=== PATIENT | male | born 1950 | race Hispanic/Latino ===

== ENCOUNTER 2020-01-15 08:15 | Day surgery (SDC) | payer OTHER ==
[2020-01-13 15:07] LABS: BASOPHILS % (AUTO) 0.6 % (0.0-5.0); EOSINOPHILS % (AUTO) 2.8 % (0.0-8.0); HEMATOCRIT 36.7 % (42-54); LYMPHOCYTES % (AUTO) 21.6 % (21.0-51.0); MEAN CORPUSCULAR HEMOGLOBIN 29.8 pg (27.0-33.0); MEAN CORPUSCULAR VOLUME 90.4 fL (79-99); MONOCYTES % (AUTO) 4.8 % (3.0-13.0); PLATELET COUNT (AUTO) 240 K/uL (130-400); RED BLOOD CELL COUNT(AUTO) 4.06 MIL/uL (4.50-6.20); WHITE BLOOD COUNT (AUTO) 5.4 K/uL (4.8-10.8)
[2020-01-13 15:15] LABS: CREATININE 1.8 mg/dL (0.5-1.5); POTASSIUM 4.5 mmol/L (3.5-5.1)
[2020-01-14 10:46] VITALS: BP 142/80
--- NOTE | 2020-01-14 15:12 | NUR ---
Abnormal labs Faxed over CBC and CMP; awaiting for response.
[~2020-01-15] VITALS: Ht 171.4 cm; Wt 99.6 kg
[2020-01-15] VITALS (17 sets, daily range): BP systolic 122–155; BP diastolic 70–89
--- NOTE | 2020-01-15 08:30 | NUR ---
preop pt arrived in no distress. pt oriented to call light and room. will continue to monitor pt.
[2020-01-15] MEDS ORDERED: SODIUM CHLORIDE 0.9% 1000ML 1,000 ML IV ONE (08:32)
[2020-01-15] MEDS ORDERED: ATOR40TA69 PO (08:58)
[2020-01-15] MEDS ORDERED: LEVO25TA54 PO (08:58)
[2020-01-15] MEDS ORDERED: DULA1.5P SQ (08:58)
[2020-01-15] MEDS ORDERED: INSU100V37 SQ (08:58)
[2020-01-15] MEDS ORDERED: ASPI-1197 PO (08:58)
[2020-01-15] MEDS ORDERED: CHOL100046 PO (08:58)
[2020-01-15] MEDS ORDERED: TRAM50TA4 PO (08:58)
[2020-01-15] MEDS ORDERED: INSU100C6 SQ ×3 (08:58)
[2020-01-15] MEDS ORDERED: ALPH600C3 PO (08:58)
[2020-01-15] MEDS ORDERED: LISI-613 PO (08:58)
[2020-01-15] MEDS ORDERED: HYDR12.54 PO (08:58)
[2020-01-15] MEDS ORDERED: PANT40TA54 PO (08:58)
[2020-01-15] MEDS ORDERED: METO-391 PO (08:58)
[2020-01-15] MEDS ORDERED: VIT1TABL83 PO (08:58)
[2020-01-15] MEDS ORDERED: ROPI2TAB7 PO (08:58)
[2020-01-15] MEDS ORDERED: CLINDAMYCIN 600 MG/D5% WATER 50 ML IV ONE (09:01)
--- NOTE | 2020-01-15 09:10 | NUR ---
bs bs 65 . pt asymptomatic, dextrose 50 1/2 amp given ivp (25 ml), no adverse reaction noted. will continue to monitor
[2020-01-15] MEDS ORDERED: LIDOCAINE PF 2% 5ML ABBOJECT ONE (11:26)
[2020-01-15] MEDS ORDERED: FENTANYL CITRATE PF 50 MCG/1 ML 2ML VIAL ONE (11:27)
[2020-01-15] MEDS ORDERED: ONDANSETRON HCL 4 MG/2 ML VIAL ONE (11:27)
[2020-01-15] MEDS ORDERED: MIDAZOLAM HCL 1 MG/ML 2ML VIAL ONE (11:27)
[2020-01-15] MEDS ORDERED: ROCURONIUM 10MG/1ML SYR 10 MG/ML ML ONE (11:27)
[2020-01-15] MEDS ORDERED: DEXAMETHASONE SOD PHOSPHATE 10MG/ML 1ML VIAL ONE (11:27)
[2020-01-15] MEDS ORDERED: PROPOFOL 10 MG/ML 20ML VIAL IV ONE (11:27)
[2020-01-15] MEDS ORDERED: ROPIVACAINE 0.5% 5MG/ML 30ML IJ ONE (11:30)
[2020-01-15] MEDS ORDERED: EPHEDRINE SULFATE 50 MG/ML AMPULE ONE (11:47)
[2020-01-15] MEDS ORDERED: CLINDAMYCIN PHOSPHATE 150 MG/ML 6ML VIAL ONE (12:53)
[2020-01-15] MEDS ORDERED: GLYCOPYRROLATE 1 MG/5 ML SYRINGE ONE (13:26)
[2020-01-15] MEDS ORDERED: NEOSTIGMINE 5MG/5ML SYR IV ONE (13:26)
--- NOTE | 2020-01-15 14:50 | NUR ---
Pt received Pt received from PACU via stretcher accompanied by Juliana Troncoso RN. Pt awake and alert. Sleeping at intervals. Has right arm in sling with dressings x2 to shoulder area. Dry and intact. Denies any pain. Good capillary refill to right fingers. [place] nail beds. Fluids offered.
--- NOTE | 2020-01-15 15:30 | NUR ---
D/C Pt prepared for discharge. at bedside. Written discharge instructions with f/u appointment info given to . Verbalized understanding. Pt continues to deny any pain; still with effects from block. Dressings remained dry and intact. Teaching given regarding block and how sensation will return in a few hours. Verbalized understanding. Sling to right arm. Pt was then dressed by and staff and was taken to private vehicle via w/c. Pt very appreciative of care.
== END 2020-01-15 15:45 | disposition home or self-care (01) ==
LOC: DAH 08:15
PROVIDERS: ATTEND Orthopaedic Surgery
DX: S46.012A Strain of muscle(s) and tendon(s) of the rotator cuff of left shoulder, initial encounter (principal); S46.212A Strain of muscle, fascia and tendon of other parts of biceps, left arm, initial encounter; Z20.828 Contact with and (suspected) exposure to other viral communicable diseases; I10 Essential (primary) hypertension; G20 Parkinson's disease; E03.9 Hypothyroidism, unspecified; K21.9 Gastro-esophageal reflux disease without esophagitis; E66.9 Obesity, unspecified; Z90.49 Acquired absence of other specified parts of digestive tract; Z88.0 Allergy status to penicillin; Z98.890 Other specified postprocedural states; Z79.899 Other long term (current) drug therapy; Z89.421 Acquired absence of other right toe(s); Z68.33 Body mass index [BMI] 33.0-33.9, adult; X58.XXXA Exposure to other specified factors, initial encounter
CPT/HCPCS: 29827; 36415; 80048; 82948 ×3; 85025; 93005; A4215; A4216; A4221; A4222; A4223 ×3; A4248; A4452; A4565; A4606; A4649 ×4; A4663; C1713; J1100; J2001; J2250; J2405; J2704; J2710; J2795; J3010; J3490 ×3; J7030; J7120; Q4128; U0003; 96374